=== PATIENT | female | born 1950 | race Caucasian/White ===

== ENCOUNTER 2017-07-23 15:50 | Outpatient (CLI) | payer MEDICARE, BC ==
--- NOTE | 2017-07-23 17:54 | MRI ---
MR OF THE RIGHT SHOULDER WITHOUT CONTRAST 07/23/17 INDICATION: Right shoulder pain. COMPARISON: None. FINDINGS: There is mild tendinosis of the supraspinatus. Small amount of fluid is seen within the subacromial s ubdeltoid bursa. The biceps tendon is located. No paralabral cyst is evident. Glenohumeral joint appe ars within normal limits. There is moderate AC joint osteoarthrosis. No muscular atrophy is evident. There is mild tendinosis of the subscapularis. There is some intrasubstance degenerative signal seen involving the biceps anchor. IMPRESSION: 1. Mild subscapularis and supraspinatus tendinosis. No full thickness rotator cuff tear is evide nt. 2. Small amount of fluid in the subacromial subdeltoid bursa can be related to mild bursitis. 3. Some mild intrasubstance degenerative signal of the biceps anchor. 4. Moderate AC joint osteoarthrosis. POS: [facility]
== END 2017-07-23 15:51 | disposition home or self-care (01) ==
LOC: MRI 15:50
PROVIDERS: ATTEND Orthopaedic Surgery
DX: M25.511 Pain in right shoulder (principal); M75.81 Other shoulder lesions, right shoulder; M19.011 Primary osteoarthritis, right shoulder

== ENCOUNTER 2017-09-09 08:31 | Outpatient (CLI) | payer MEDICARE, BC ==
--- NOTE | 2017-09-09 10:19 | MRI ---
MRI CERVICAL SPINE NONCONTRAST: History: Neck pain. Cervical radiculopathy. FINDINGS: Vertebral body heights are maintained. Bone marrow signal is within normal limits. There is desiccati on of all intervertebral discs. C2-3: Mild osteophytosis. Mild stenosis left neural foramen. C3-4: Mild osteophytosis. Mild stenosis left neural foramen. C4-5: Mild osteophytosis. Central canal and neural foramina are patent. C5-6: Posterior osteophyte/disc complex is greater to the left of midline, effacing the left ventral aspect of the thecal sac and spinal cord by 10%. No abnormal signal within the cord. Uncal vertebral and facet hypertrophy with mild to moderate bilateral foraminal stenosis. C6-7: Disc space narrowing. Posterior osteophyte/disc complex. Circumferential degenerative changes w ith mild central canal stenosis. Tarlov cysts are associated with each nerve root. Degenerative teague es with moderate stenosis left neural foramen. C7-T1: Mild osteophytosis. Central canal and neural foramina are patent. IMPRESSION: 1. Multilevel degenerative changes throughout the cervical spine as detailed above, including central canal and bilateral foraminal stenosis. No evidence of myelomalacia. POS: [facility]
--- NOTE | 2017-09-09 11:18 | MRI ---
LUMBAR SPINE MRI WITHOUT IV CONTRAST: History: 67-year-old female with history of lumbar radiculopathy and low back pain. Technique: Multiplanar, multisequence MRI examination of the lumbar spine is performed. FINDINGS: There are some desiccation changes and degenerative changes throughout the lumbar spine. Conus medull zhen region is unremarkable terminating at L1. L1-2: Unremarkable. L2-3: There is some minimal disc bulging with ligament and facet hypertrophic changes with slight thi nning of the lateral recesses and mild bilateral foraminal stenosis. L3-4: Marked generalized disc bulging with prominent annular fissures noted centrally and posterior l eft lateral aspect with some resultant mild central canal and lateral recess stenosis and moderate le ft foraminal stenosis. L4-5: Mild disc bulging with some associated annular fissures without significant central canal steno sis. There is some focal left foraminal stenosis. L5-S1: Unremarkable. IMPRESSION: Multilevel variable severity canal, lateral recess, and foraminal stenosis. Multilevel annular fissur es. No significant abnormal marrow signal. POS: [facility]
== END 2017-09-09 08:32 | disposition home or self-care (01) ==
LOC: TBSIIMAG 08:31
PROVIDERS: ATTEND Orthopaedic Surgery
DX: M47.22 Other spondylosis with radiculopathy, cervical region (principal); M48.061 Spinal stenosis, lumbar region without neurogenic claudication; M99.81 Other biomechanical lesions of cervical region; M99.83 Other biomechanical lesions of lumbar region; M48.02 Spinal stenosis, cervical region
CPT/HCPCS: 72141; 72148

== ENCOUNTER 2017-12-01 14:13 | Outpatient (CLI) | payer MEDICARE, BC ==
--- NOTE | 2017-12-01 15:46 | RAD ---
THREE VIEWS CERVICAL SPINE: DATE: 12/01/17. HISTORY: Degenerative disk disease. FINDINGS: The neutral lateral examination demonstrates disk space narrowing with anterior osteophyte formation at C6-7. There is disk space narrowing with mild posterior osteophyte formation at C5-6. There is n o anterolisthesis or retrolisthesis seen on the neutral lateral imaging. With flexion and extension, there is no significant anterolisthesis or retrolisthesis noted. No frontal imaging is provided. IMPRESSION: Degenerative disk disease at described above. POS: [facility]
--- NOTE | 2017-12-01 15:50 | RAD ---
LUMBAR SPINE THREE VIEWS: 12/01/2017 HISTORY: A 67-year-old female with intervertebral disk degeneration. COMPARISON: None. FINDINGS: The neutral lateral examination demonstrates L2-L3 retrolisthesis measuring 9 mm and L3-L4 retrolisth esis measuring 7 mm. There is facet hypertrophy at L3-L4, L4-L5, and L5-S1. Retrolisthesis at L2-L3 and at L3-L4 appears unchanged on flexion and extension imaging. At the L1-L2 through the L5-S1 levels, there is mild anterior osteophyte formation. No acute fractur e or dislocation is seen. IMPRESSION: Multilevel degenerative change, as described above. There is retrolisthesis of L2 on L3, stable, wit h neutral flexion and extension views. POS: [facility]
== END 2017-12-01 14:14 | disposition home or self-care (01) ==
LOC: RAD 14:13
PROVIDERS: ATTEND Neurological Surgery
DX: M51.36 Other intervertebral disc degeneration, lumbar region (principal); M47.896 Other spondylosis, lumbar region; M47.897 Other spondylosis, lumbosacral region; M43.16 Spondylolisthesis, lumbar region; M25.78 Osteophyte, vertebrae; M50.30 Other cervical disc degeneration, unspecified cervical region
CPT/HCPCS: 72040; 72100

== ENCOUNTER 2018-05-26 16:03 | Observation (INO) | payer MEDICARE, BC ==
[2018-05-26 16:40] LABS: #Eosinphils 0.1 thou/uL (0.0-0.7); #Lymphocytes 2.8 thou/uL (1.20-3.40); #Monocytes 0.6 thou/uL (0.11-0.59); %Basophils 0.7 % (0.0-1.0); %Lymphocytes 42.2 % (21.0-51.0); %Monocytes 9.6 % (0.0-10.0); %Neutrophils 45.5 % (42.0-75.0); Hemoglobin 13.9 g/dL (12.0-16.0); Mean Corpuscular HGB CONC 33.6 g/dL (32.0-36.0); Mean Corpuscular Hemoglobin 30.1 pg (27.0-31.0); Mean Corpuscular Volume 89.7 fL (78.0-98.0); Mean Platelet Volume 7.6 fL (7.4-10.4); Platelet Count 184 thou/uL (130-400); Red Blood Cell (RBC) Count 4.62 mill/uL (4.20-5.40); White Blood Cell (WBC) Count 6.6 thou/uL (4.8-10.8)
[2018-05-26 17:01] LABS: ALT (SGPT) 25 U/L (8-55); AST (SGOT) 18 U/L (5-34); Albumin 3.7 g/dL (3.4-4.8); Alkaline Phosphatase 62 U/L (40-150); Anion Gap 13 mmol/L (10-20); BUN (Urea Nitrogen) 12 mg/dL (9.8-20.1); Bilirubin, Total 0.4 mg/dL (0.2-1.2); CK (CPK) 70 U/L (29-168); Calc. Creatinine Clearance 0 mL/min (70-130); Calcium 9.4 mg/dL (7.8-10.44); Carbon Dioxide 21 mmol/L (23-31); Chloride 106 mmol/L (98-107); Estimated GFR-MDRD 69; Globulin 2.8 g/dL (2.4-3.5); Glucose 222 mg/dL (80-115); Lipase 40 U/L (8-78); Potassium 4.1 mmol/L (3.5-5.1); Protein, Total 6.5 g/dL (6.0-8.3); Sodium 136 mmol/L (136-145)
--- NOTE | 2018-05-26 17:21 | RAD ---
SINGLE VIEW OF THE CHEST: COMPARISON: None. HISTORY: Intermittent chest pain for weeks. FINDINGS: Single view of the chest shows a normal sized cardiomediastinal silhouette. There is no evidence of c onsolidation, mass, or pleural effusion. The bones are unremarkable. IMPRESSION: No evidence of acute cardiopulmonary disease. POS: [facility]
[2018-05-26] MEDS ORDERED: Nitroglycerin 0.4 MG TAB (25 Tab Bottle) ONE (17:50)
[2018-05-26] MEDS ORDERED: Acetaminophen 500 MG TAB ONE (17:50)
[2018-05-26] MEDS ORDERED: Ketorolac Tromethamine 30 MG/ML VIAL ONE (20:32)
[2018-05-26] MEDS ORDERED: Nitroglycerin 2% Ointment 1 INCH/1 GM Packet ONE (21:51)
[2018-05-26] MEDS ORDERED: HumaLOG 300 UNITS/3 ML VIAL SC PRN (22:33)
[2018-05-26] MEDS ORDERED: Dextrose 50% Abboject 50 ML SYRINGE SLOW IVP PRN (22:33)
[2018-05-26] MEDS ORDERED: Dextrose 5% in Water 1,000 ML IV PRN (22:33)
[2018-05-27 01:52] LABS: Troponin I Less than 0.010 ng/mL (< 0.028)
[2018-05-27 04:32] LABS: #Eosinphils 0.1 thou/uL (0.0-0.7); #Lymphocytes 3.1 thou/uL (1.20-3.40); #Monocytes 0.8 thou/uL (0.11-0.59); #Neutrophils 2.5 thou/uL (1.40-6.50); %Basophils 0.7 % (0.0-1.0); %Eosinophils 1.9 % (0.0-10.0); %Lymphocytes 47.6 % (21.0-51.0); %Neutrophils 37.8 % (42.0-75.0); Hemoglobin 12.8 g/dL (12.0-16.0); Mean Corpuscular Hemoglobin 30.1 pg (27.0-31.0); Mean Corpuscular Volume 88.6 fL (78.0-98.0); Mean Platelet Volume 7.8 fL (7.4-10.4); Platelet Count 166 thou/uL (130-400); RBC Distribution Width 11.8 % (11.5-14.5); Red Blood Cell (RBC) Count 4.24 mill/uL (4.20-5.40); White Blood Cell (WBC) Count 6.5 thou/uL (4.8-10.8)
[2018-05-27 04:51] LABS: ALT (SGPT) 22 U/L (8-55); AST (SGOT) 29 U/L (5-34); Albumin 3.3 g/dL (3.4-4.8); Alkaline Phosphatase 51 U/L (40-150); Anion Gap 12 mmol/L (10-20); BUN (Urea Nitrogen) 14 mg/dL (9.8-20.1); Bilirubin, Total 0.4 mg/dL (0.2-1.2); Calc. Creatinine Clearance 0 mL/min (70-130); Calcium 8.9 mg/dL (7.8-10.44); Carbon Dioxide 23 mmol/L (23-31); Cardiac Risk 4.8 (Less than 4.5); Chloride 107 mmol/L (98-107); Cholesterol 196 mg/dl (< 200 Desired); Estimated GFR-MDRD 79; Globulin 2.9 g/dL (2.4-3.5); Glucose 165 mg/dL (80-115); HDL Cholesterol 41 mg/dL (>60 Neg Risk); LDL Cholesterol, Calculated 89 mg/dL; Potassium 4.5 mmol/L (3.5-5.1); Protein, Total 6.2 g/dL (6.0-8.3); Sodium 137 mmol/L (136-145); Triglycerides 330 mg/dL (Less than 150)
[2018-05-27] MEDS ORDERED: Ondansetron PF 4 MG/2 ML Vial IVP PRN (08:41)
[2018-05-27] MEDS ORDERED: Ondansetron ODT 4 MG TAB PO PRN (08:41)
[2018-05-27] MEDS ORDERED: Acetaminophen 325 MG TAB PO PRN (08:41)
[2018-05-27] MEDS ORDERED: Enoxaparin Sodium 40 MG/0.4 ML SYRINGE SC SCH (09:00)
[2018-05-27] MEDS ORDERED: Famotidine 20 MG TAB PO SCH (09:00)
--- NOTE | 2018-05-27 13:58 | NM ---
MYOCARDIAL PERFUSION SCAN: INDICATIONS: Chest pain. TECHNIQUE: The patient was given 10 millicuries technetium sestamibi for rest imaging and 30 millicuries for str ess imaging. The patient was stressed according to adenosine protocol. FINDINGS: The left ventricle is imaged with SPECT imaging and CT attenuation. There is normal activity throughout the left ventricle on stress and rest images. No evidence for re versible ischemia. Wall motion appears normal. Ejection fraction is recorded at 78%. IMPRESSION: Negative sestamibi stress test. POS: [facility]
--- NOTE | 2018-05-27 14:17 | PDOC.EVN ---
Event Note - Event Note Event Note: patient seen. evaluation and management reviewed. agree with Valdez NEELY
[2018-05-27] MEDS ORDERED: ADENOSINE 60 MG/20 ML VIAL ONE (16:44)
--- NOTE | 2018-05-30 21:26 | EKG ---
Test Reason : DIZZINESS Blood Pressure : / mmHG Vent. Rate : 066 BPM Atrial Rate : 066 BPM P-R Int : 166 ms QRS Dur : 084 ms QT Int : 406 ms P-R-T Axes : 028 -24 -17 degrees QTc Int : 425 ms Normal sinus rhythm Septal infarct , age undetermined Abnormal ECG Confirmed by DAKOTAH CATALAN ([id number]), editor trade journal [employer] MORALES ([id number]) on 05/30/2018 9:25:47 PM Referred By: Confirmed By:DAKOTAH CATALAN
== END 2018-05-27 15:45 | disposition home or self-care (01) ==
LOC: ERS 16:03 → ERHOLD 05-27 02:58
PROVIDERS: ADMIT Internal Medicine; ATTEND Internal Medicine
DX: R07.9 Chest pain, unspecified (principal); R51 Headache; E11.9 Type 2 diabetes mellitus without complications; E78.00 Pure hypercholesterolemia, unspecified; I10 Essential (primary) hypertension; F41.9 Anxiety disorder, unspecified; F32.9 Major depressive disorder, single episode, unspecified; Z79.82 Long term (current) use of aspirin; Z79.84 Long term (current) use of oral hypoglycemic drugs; Z79.899 Other long term (current) drug therapy
CPT/HCPCS: 71045; 78452; 80053; 80061; 82550; 83690; 83880; 84484 ×3; 85025; 93005; 93017; 93306; 96361; 96374; 99285; A9500; G0378; 36415; 84443; J0153; J1885

== ENCOUNTER 2018-10-21 08:25 | Outpatient (CLI) | payer MEDICARE, BC ==
--- NOTE | 2018-11-18 15:35 | MMO ---
Bilateral MAMMO Bilat Screen [facility]. CLINICAL HISTORY: Patient is 68 years old and is seen for screening. The patient has no family history of breast cancer. The patient has no personal history of cancer. VIEWS: The views performed were: bilateral craniocaudal with tomosynthesis; bilateral mediolateral oblique with tomosynthesis; and bilateral exaggerated craniocaudal. MAMMOGRAM FINDINGS: The breasts are almost entirely fat. Finding 1: There are benign appearing calcifications seen in both breasts. Finding 2: There are masses with circumscribed margins seen in both breasts. There are no suspicious masses, suspicious calcifications, or new areas of architectural distortion. IMPRESSION: THERE IS NO MAMMOGRAPHIC EVIDENCE OF MALIGNANCY. A ROUTINE FOLLOW-UP MAMMOGRAM IN 1 YEAR IS RECOMMENDED. THE RESULTS OF THIS EXAM WERE SENT TO THE PATIENT. ACR BI-RADS Category 2 - Benign finding MAMMOGRAPHY NOTE: 1. A negative mammogram report should not delay a biopsy if a dominant of clinically suspicious mass is present. 2. Approximately 10% to 15% of breast cancers are not detected by mammography. 3. Adenosis and dense breasts may obscure an underlying neoplasm.
== END 2018-10-21 08:26 | disposition home or self-care (01) ==
LOC: BICMAMMO 08:25
PROVIDERS: ATTEND Family Medicine
DX: Z12.31 Encounter for screening mammogram for malignant neoplasm of breast (principal)
CPT/HCPCS: 77063; 77067

== ENCOUNTER 2018-12-10 07:26 | Outpatient (CLI) | payer MEDICARE, BC ==
--- NOTE | 2018-12-10 12:24 | MRI ---
MRI LUMBAR SPINE WITH AND WITHOUT CONTRAST: DATE: 12/10/2018. HISTORY: A 68-year-old female with ICD-10: M47.816, spondylosis of lumbar spine. M54.32, sciatica of left si de. R20.0, numbness in left leg. R29.898, weakness of left leg. COMPARISON: Noncontrast MRI of 09/09/2017. TECHNIQUE: Multiple sequences obtained in axial and sagittal planes, pre and post IV injection of gadolinium-bas ed contrast agent. FINDINGS: For the purposes of this report, it will be assumed that there are 5 lumbar-type vertebrae. Vertebra l body heights are maintained. Conus medullaris terminates at upper L1. No major bone marrow signal abnormality. No major spondylolisthesis. No severe disk space narrowing at any level. There is a new finding of an extradural mass occupying the left side of the spinal canal at L2. The superior ex tent of the mass is at the pedicle level of L2, and the inferior margin of the mass is at the L2-[address] level. At L2-3, there is a central and left paracentral disk extrusion (in contact with the mass described above) superimposed on a diffuse disk bulge. The mass described above in the left lateral epidural space is T1 hypointense and is T2 intermediate signal (much higher than that of intervertebr al disk). It does not enhance centrally, but there is thin peripheral enhancement probably represent ing granulation tissue. The mass indents the left side of the thecal sac, and medially displaces the left cauda equina nerve roots. It also impinges on the left L2 nerve root. There is mild to moderate central spinal canal stenosis at L2-3 and at L3-4. Other than the mass and the disk herniation, there is no other interval change. IMPRESSION: Left lateral large extradural mass at L2, impinging on multiple nerve roots. This is probably a supe riorly migrated extruded herniated disk material from L2-3. JN R POS: [facility]
== END 2018-12-10 07:27 | disposition home or self-care (01) ==
LOC: MRI 07:26
PROVIDERS: ATTEND Family Medicine
DX: M47.816 Spondylosis without myelopathy or radiculopathy, lumbar region (principal); M54.32 Sciatica, left side; R20.0 Anesthesia of skin; R29.898 Other symptoms and signs involving the musculoskeletal system
CPT/HCPCS: 72158; 82565

== ENCOUNTER 2018-12-11 12:28 | Inpatient (IN) | payer MEDICARE, BC ==
[2018-12-11 13:52] LABS: #Eosinphils 0.1 thou/uL (0.0-0.7); #Lymphocytes 1.2 thou/uL (1.20-3.40); #Monocytes 0.3 thou/uL (0.11-0.59); #Neutrophils 9.8 thou/uL (1.40-6.50); %Basophils 0.1 % (0.0-1.0); %Eosinophils 0.7 % (0.0-10.0); %Lymphocytes 10.3 % (21.0-51.0); %Monocytes 2.8 % (0.0-10.0); %Neutrophils 86.1 % (42.0-75.0); Hemoglobin 15.8 g/dL (12.0-16.0); Mean Corpuscular HGB CONC 35.3 g/dL (32.0-36.0); Mean Corpuscular Hemoglobin 31.4 pg (27.0-31.0); Mean Platelet Volume 7.4 fL (7.4-10.4); Platelet Count 186 thou/uL (130-400); RBC Distribution Width 12.1 % (11.5-14.5); Red Blood Cell (RBC) Count 5.02 mill/uL (4.20-5.40); White Blood Cell (WBC) Count 11.3 thou/uL (4.8-10.8)
[2018-12-11 13:57] LABS: Prothrombin Time 12.6 SEC (12.0-14.7)
[2018-12-11 13:58] LABS: PTT 28.6 SEC (22.9-36.1)
[2018-12-11 14:15] LABS: ALT (SGPT) 31 U/L (8-55); AST (SGOT) 18 U/L (5-34); Alkaline Phosphatase 76 U/L (40-150); Anion Gap 14 mmol/L (10-20); BUN (Urea Nitrogen) 12 mg/dL (9.8-20.1); Bilirubin, Total 0.5 mg/dL (0.2-1.2); Calc. Creatinine Clearance 0 mL/min (70-130); Calcium 9.6 mg/dL (7.8-10.44); Carbon Dioxide 24 mmol/L (23-31); Chloride 101 mmol/L (98-107); Estimated GFR-MDRD 72; Globulin 3.2 g/dL (2.4-3.5); Glucose 294 mg/dL (80-115); Potassium 4.7 mmol/L (3.5-5.1); Protein, Total 7.2 g/dL (6.0-8.3); Sodium 134 mmol/L (136-145)
[2018-12-11] MEDS ORDERED: Ondansetron ODT 4 MG TAB SL PRN (17:14)
[2018-12-11] MEDS ORDERED: Ondansetron PF 4 MG/2 ML Vial IVP PRN (17:14)
[2018-12-11] MEDS ORDERED: Senokot S 8.6-50 MG TAB PO PRN (17:28)
[2018-12-11] MEDS ORDERED: Acetaminophen 325 MG TAB PO PRN (17:28)
[2018-12-11 18:11] VITALS: BMI 29.5
[2018-12-11] MEDS: tiZANidine HCl 4 MG TAB PO PRN (18:24)
[2018-12-11] MEDS: HYDROcodone/Acetaminophen 5/325 mg Tablet PO PRN (18:25)
[2018-12-11] MEDS: Sodium Chloride 0.9% 1,000 ML IV SCH ×2 (18:35→19:08)
[2018-12-12] MEDS: HYDROcodone/Acetaminophen 5/325 mg Tablet PO PRN ×3 (00:02→22:59)
--- NOTE | 2018-12-12 02:59 | CON ---
DATE OF CONSULTATION: This is Endy Bray PA-C dictating a report for Gerardo Szymanski MD. This is a 50-minute initial patient evaluation of which greater than 50% of the exam was spent counseling and coordinating the patient's care. Remainder of the exam was spent in review of the patient's medical records and formulation of treatment plan as well as review of appropriate imaging studies. CHIEF COMPLAINT: Left leg paresthesias and weakness for the past week. HISTORY OF PRESENT ILLNESS: Ms. Nolasco is a 68-year-old female who presents to [facility] with her for the above complaints. Apparently, the patient has dealt with episodic low back and left lower extremity pain for several months, but earlier this week, she was repotting plants at her daughter's house in [place] when she had a sudden onset of electric-like sensation of pain that was debilitating into the back and left hip, and anterolateral thigh. She states her pain was so severe that the next day she required EMS to take her to [facility] for evaluation and pain control. She states they were able to control her leg pain and some back pain with medications, however, she continues with functional weakness of the left leg and that she feels as though she is not steady on her feet. She is afraid her leg will not support her and she states she feels as though her knee will buckle. She has not had any falls at this time. Again, she has paresthesias in the same distribution as pain with addition of some extension into the left lateral calf. She does have for the past 1 day right hip pain and she believes that this is related to compensation with the left leg as well as left-sided back pain. She is on 81 mg aspirin for cardiac prophylaxis, though does not report taking it recently. She has not had epidural steroid injections in the past given that her pain has episodically and with time improved. She does not use tobacco. Review of the patient's lumbar spine MRI shows a large herniated disk and significant neuroforaminal compromise with facet hypertrophy on the left at L2-L3 at a lesser extent, but still severe at the L3-L4 level. There does not appear to be any significant malalignment of the lumbar spine. PHYSICAL EXAMINATION: GENERAL: The patient is awake, alert, and appropriate. EXTREMITIES: She has full strength in the bilateral upper extremities and in the right lower extremity, however, does have some mild weakness in the left iliopsoas. She also has decreased sensation to light touch in the left anterolateral thigh. NEUROLOGIC: Gait was not tested. She does not appear to have significant tenderness to palpation of the lumbar spine. She is able to somewhat comfortably turn over in bed during the exam. GCS currently is 15. IMPRESSION AND DIAGNOSES: 1. Low back with left lumbar radiculopathy. 2. Left L2-L3 and left L3-L4 foraminal stenosis and herniated disk. 3. Type 2 diabetes mellitus. PLAN: At this time, I have discussed the patient's case and imaging with Dr. Szymanski. We have also discussed surgical intervention given the patient's leg weakness and significant severe foraminal stenosis that include a left L2-L3 and left L3-L4 hemilaminotomies, foraminotomies, and diskectomy at the L2-L3 level. At this time, I do not believe that we need to add any right-sided work; however, Dr. Szymanski and I will again review the MRI together and the patient again notes that her symptoms are significant into the left lower extremity. As such, I have also consulted our hospitalist colleagues to help clear the patient for surgery if she does have elevated blood glucose at 294. The patient may eat until midnight, but likely we will plan for surgery on Friday morning. She will likely need inpatient rehab versus home health physical therapy after surgery. Nonetheless, we will closely monitor the patient and I have allowed her to have activity as tolerated since she is a fall risk. Please call with any changes in the patient's neurologic status, otherwise we will finalize her surgical plan tomorrow. Job ID: [id number]
[2018-12-12] MEDS: Sodium Chloride 0.9% 1,000 ML IV SCH ×2 (05:58→12:58)
[2018-12-12] MEDS ORDERED: metFORMIN 500 MG TAB PO SCH (08:00)
[2018-12-12 08:06] LABS: #Basophils 0.1 thou/uL (0.0-0.2); #Eosinphils 0.1 thou/uL (0.0-0.7); #Lymphocytes 2.7 thou/uL (1.20-3.40); #Monocytes 1.2 thou/uL (0.11-0.59); #Neutrophils 7.8 thou/uL (1.40-6.50); %Basophils 0.5 % (0.0-1.0); %Eosinophils 0.7 % (0.0-10.0); %Lymphocytes 22.9 % (21.0-51.0); %Neutrophils 65.9 % (42.0-75.0); Hemoglobin 13.6 g/dL (12.0-16.0); Mean Corpuscular HGB CONC 33.5 g/dL (32.0-36.0); Mean Corpuscular Hemoglobin 29.7 pg (27.0-31.0); Mean Corpuscular Volume 88.6 fL (78.0-98.0); Mean Platelet Volume 7.3 fL (7.4-10.4); Platelet Count 180 thou/uL (130-400); RBC Distribution Width 12.1 % (11.5-14.5); Red Blood Cell (RBC) Count 4.58 mill/uL (4.20-5.40); White Blood Cell (WBC) Count 11.8 thou/uL (4.8-10.8)
[2018-12-12 08:25] LABS: Anion Gap 11 mmol/L (10-20); BUN (Urea Nitrogen) 13 mg/dL (9.8-20.1); Calc. Creatinine Clearance 102 mL/min (70-130); Calcium 9.6 mg/dL (7.8-10.44); Carbon Dioxide 28 mmol/L (23-31); Chloride 103 mmol/L (98-107); Estimated GFR-MDRD 85; Glucose 176 mg/dL (80-115); Potassium 3.8 mmol/L (3.5-5.1); Sodium 138 mmol/L (136-145)
[2018-12-12] MEDS ORDERED: Dextrose 5% in Water 1,000 ML IV PRN (09:57)
[2018-12-12] MEDS ORDERED: Dextrose 50% Abboject 50 ML SYRINGE SLOW IVP PRN (09:57)
[2018-12-12] MEDS: tiZANidine HCl 4 MG TAB PO PRN ×2 (09:58→23:00)
[2018-12-12] MEDS: Alogliptin 25 MG TAB PO SCH (09:59)
[2018-12-12] MEDS: Atorvastatin Calcium 10 MG TAB PO SCH (10:00)
--- NOTE | 2018-12-12 10:29 | CON ---
DATE OF CONSULTATION: 12/12/2018 REQUESTING PHYSICIAN: FLORINDA Bianchi to Dr. Szymanski. REASON FOR CONSULTATION: Preoperative evaluation and clearance. CHIEF COMPLAINT: Worsening low back pain. HISTORY OF PRESENT ILLNESS: A 68-year-old female with past medical history significant for diabetes, hypertension, hyperlipidemia, as well as chronic back pain, who was admitted by Neurosurgery Service due to worsening back pain. Evaluation showed severe lumbar spondylosis with stenosis and surgery is planned. Hospitalist Service was requested for preoperative evaluation and clearance. The patient reported that the back pain has improved significantly following steroid therapy. Currently, she rates her pain at 3 to 4/10. Denied chest pain, palpitation, vomiting, abdominal pain, dysuria, hematuria, leg swelling, focal weakness, PND, orthopnea, shortness of breath, exertional dyspnea, or claudication. She admitted to mild headache, left leg weakness, and left thigh numbness. There is no history of fever, cough, or change in appetite or weight. The patient had a negative nuclear stress test in May 2018, and has not had any chest pain since then. PAST MEDICAL HISTORY: 1. Hypertension. 2. Diabetes. 3. Hyperlipidemia. PAST SURGICAL HISTORY: 1. Cholecystectomy. 2. Hysterectomy. 3. Carpal tunnel release. 4. Pilonidal cyst resection. FAMILY HISTORY: Significant for coronary artery disease and esophageal cancer as well as hypertension and diabetes in father who is late now. Mother who is also late had hypertension and diabetes. SOCIAL HISTORY: The patient lives with spouse. Denied tobacco or recreational drug use. She wants to be full code. Spouse is the surrogate decision maker. ALLERGIES: NO KNOWN DRUG ALLERGY REPORTED. HOME MEDICATIONS: 1. Wellbutrin 150 mg p.o. b.i.d. 2. Citalopram 20 mg p.o. daily. 3. Metformin ER 2000 mg p.o. daily at bedtime. 4. Naprosyn 500 mg p.o. daily p.r.n. 5. Enalapril 20 mg p.o. daily. 6. Januvia 100 mg p.o. daily. REVIEW OF SYSTEMS: Twelve-point review of systems performed was negative other than pertinent positives and negatives included in the history of present illness. PHYSICAL EXAMINATION: VITAL SIGNS: Temperature 97.8, pulse 67, respiratory rate 16, SpO2 of 96% on room air, blood pressure 144/77. GENERAL: Healthy-looking, middle-aged female, in no distress. Afebrile. Anicteric. Acyanotic. HEENT: Normocephalic, atraumatic. Pupils are reacting to light. NECK: Supple with mild posterior tenderness. Range of motion is preserved. No lymphadenopathy or masses appreciated. CARDIOVASCULAR: Regular rhythm and rate. Normal heart sounds 1 and 2. No murmur was appreciated. RESPIRATORY: Good air entry bilaterally with no crackle, rhonchi, or use of accessory muscles. GI: Full, soft, nontender, nondistended with normal bowel sounds. EXTREMITIES: Grossly normal looking, atraumatic, with no edema or erythema. Distal pulses are palpable. NEUROLOGIC: Conscious, alert, and oriented x3 with appropriate mental status. Cranial nerves 2 through 12 are intact. The patient moves all extremities. Power is minimally decreased on the left lower extremity with a score of 5-/5 while other limbs are 5/5. Mild atrophy of the thigh muscles, especially on the lateral side were also noted. Sensation also is decreased on the lateral left thigh. PSYCHIATRIC: Normal affect with behavior as well as good insight. DIAGNOSTIC DATA: CBC showed WBC count of 11.8, hemoglobin of 13.6, MCV of 88.6, platelet of 180. Coagulation panel showed PT 12.6, INR 1.0, PTT 28.6. BMP showed sodium 138, potassium 3.8, chloride 103, CO2 of 28, BUN 13, creatinine 0.69, glucose 176, calcium 9.6. ASSESSMENT: 1. Lumbar spondylosis with herniated disk and spinal stenosis as well as foraminal stenosis. Surgery is planned by Neurosurgery. 2. Type 2 diabetes mellitus. 3. Hypertension. 4. Hyperlipidemia. 5. Depression. 6. Pilonidal cyst status post resection with intermittent flare ups. 7. Chronic back pain. 8. Negative stress test in May 2018. The patient has chronic medical conditions, hypertension, depression, type 2 diabetes, which are all well controlled. She denied chest pain, palpitation, PND, or orthopnea. She also had negative stress test in May. She had some mildly increased cardiovascular risk, but that could not be further modified. We will go ahead and rule out acute myocardial infarction with troponin, and the patient would be cleared for surgery if that is indicated. PLAN: 1. We will hold metformin at this time given planned surgery with possible volume status changes. 2. We will continue other medications. We will also start the patient on sliding scale insulin given mild hyperglycemia related to steroid therapy. 3. Analgesic as per Neurosurgery. 4. DVT prophylaxis with SCDs for now. 5. Code status full code. The patient's spouse is the surrogate decision maker. Job ID: [id number]
[2018-12-12 10:34] LABS: Troponin I Less than 0.010 ng/mL (< 0.028)
[2018-12-12] MEDS: Citalopram 20 MG TAB PO SCH (10:44)
[2018-12-12] MEDS: Bupropion 150 MG SR TAB PO SCH ×2 (10:44→20:50)
[2018-12-12] MEDS: HumaLOG 300 UNITS/3 ML VIAL SC PRN ×3 (11:36→22:14)
[2018-12-12] MEDS ORDERED: Lorazepam 1 MG TAB PO SCH (22:00)
[2018-12-13] MEDS ORDERED: Fentanyl 100 MCG/2 ML VIAL ONE (07:22)
[2018-12-13 07:29] LABS: Hemoglobin A1c 8.3 % (4.0-6.0)
[2018-12-13] MEDS ORDERED: Sodium Chloride 0.9% 10 ML ONE (07:45)
[2018-12-13] MEDS ORDERED: Thrombin 5000 UNITS/5 ML VIAL ONE (07:45)
[2018-12-13] MEDS ORDERED: Midazolam HCl 2 mg/2 ml Vial ONE (08:02)
[2018-12-13] MEDS ORDERED: ceFAZolin Sodium (SDC) 2 GM/100 ML BAG ONE (08:11)
[2018-12-13] MEDS ORDERED: Bacitracin Zinc Ointment 30 gm TUBE ONE (09:59)
[2018-12-13] MEDS ORDERED: HYDROmorphone 2 MG/ML VIAL ONE (11:08)
[2018-12-13] MEDS ORDERED: Promethazine HCl 25 MG/ML VIAL IM PRN (11:19)
[2018-12-13] MEDS ORDERED: PACU-Morphine 4MG/ML VIAL SLOW IVP PRN (11:19)
[2018-12-13] MEDS ORDERED: Ondansetron HCl/PF 4 MG/2 ML Vial IVP PRN (11:19)
[2018-12-13] MEDS ORDERED: HYDROmorphone 2 MG/ML VIAL SLOW IVP PRN (11:19)
[2018-12-13] MEDS ORDERED: Promethazine HCl 25 MG/ML VIAL SLOW IVP PRN (11:19)
[2018-12-13] MEDS: Atorvastatin Calcium 10 MG TAB PO SCH (11:35)
[2018-12-13] MEDS: Citalopram 20 MG TAB PO SCH (11:36)
[2018-12-13] MEDS: Bupropion 150 MG SR TAB PO SCH ×2 (11:36→20:47)
[2018-12-13] MEDS: Alogliptin 25 MG TAB PO SCH (11:36)
[2018-12-13] MEDS: Sodium Chloride 0.9% 1,000 ML IV SCH ×2 (12:28→16:12)
[2018-12-13] MEDS: HumaLOG 300 UNITS/3 ML VIAL SC PRN (12:31)
[2018-12-13] MEDS: HYDROcodone/Acetaminophen 5/325 mg Tablet PO PRN ×3 (12:35→22:21)
[2018-12-13] MEDS ORDERED: Ketorolac Tromethamine 30 MG/ML VIAL ONE (12:50)
[2018-12-13] MEDS ORDERED: PHENYLEPHRINE-NS 100 MCG/ML 10 ML SYRINGE ONE (12:50)
[2018-12-13] MEDS ORDERED: Lidocaine 1% PF 5 ML VIAL ONE (12:50)
[2018-12-13] MEDS ORDERED: Rocuronium Bromide 10 MG/ML (10ML VIAL) ONE (12:50)
[2018-12-13] MEDS ORDERED: Ondansetron PF 4 MG/2 ML Vial ONE (12:50)
[2018-12-13] MEDS ORDERED: PROPOFOL 200 MG/20 ML VIAL ONE (12:50)
[2018-12-13] MEDS ORDERED: ePHEDrine 50 MG/ML VIAL ONE (12:50)
[2018-12-13] MEDS ORDERED: Glycopyrrolate 0.2 MG/ML 5 ML SYRINGE ONE (12:50)
[2018-12-13] MEDS: traMADol HCl 50 MG TAB PO PRN ×2 (14:05→20:47)
--- NOTE | 2018-12-13 14:05 | PDOC.HOSPP ---
- Subjective Subjective: S/p back surgery. pain is controlled. Already ambulating. Denied chest pain or SOB. - Objective Vital Signs & Weight: Vital Signs (12 hours) Temp Pulse Resp BP Pulse Ox 12/13/18 03:52 97.8 F 60 16 156/79 H 97 Weight Weight 177 lb 7 oz I&O: 12/12/18 12/13/18 12/14/18 06:59 06:59 06:59 Intake Total 1080 2520 Balance 1080 2520 Result Diagrams: 12/12/18 07:26 12/12/18 07:26 Additional Labs: Accuchecks 12/13/18 12/13/18 12/12/18 12:02 05:59 21:24 POC Glucose 254 H 175 H 213 H 12/12/18 15:48 POC Glucose 260 H ROS - Review of Systems All systems: All other ROS were reviewed and found negative. - Medication Medications: Active Medications Generic Name Dose Route Start Last Admin Trade Name Freq PRN Reason Stop Dose Admin Hydrocodone Bitart/Acetaminophen 1 tab 12/11/18 17:28 12/13/18 12:35 [place] 5/325 PO 1 tab Q4H PRN Administration Moderate Pain (4-6) Alogliptin Benzoate 25 mg 12/12/18 09:00 12/13/18 11:36 Alogliptin PO Not Given DAILY [facility] Atorvastatin Calcium 10 mg 12/12/18 09:00 12/13/18 11:35 Lipitor PO Not Given DAILY [facility] Bupropion HCl 150 mg 12/12/18 21:00 12/13/18 11:36 Wellbutrin Sr PO Not Given BID [facility] Citalopram Hydrobromide 20 mg 12/12/18 09:00 12/13/18 11:36 Celexa PO Not Given DAILY [facility] Enalapril Maleate 20 mg 12/12/18 09:00 12/13/18 11:36 Vasotec PO Not Given DAILY [facility] Sodium Chloride 1,000 mls @ 50 mls/hr 12/11/18 17:30 12/13/18 12:28 Normal Saline 0.9% IV Not Given .Q20H [facility] Insulin Human Lispro 0 units 12/12/18 09:57 12/13/18 12:31 Humalog SC 4 unit .MILD SLIDING SCALE PRN Administration Mild Correctional Scale Tizanidine HCl 4 mg 12/11/18 17:37 12/12/18 23:00 Zanaflex PO 4 mg TID PRN Administration Muscle Spasm - Exam awake alert Eye: PERRL ENT: normocephalic atraumatic Neck: supple Heart: RRR Respiratory: no wheezes, no rales (fair air ebntry bilaterally), no ronchi Gastrointestinal: soft, non-tender, non-distended, normal bowel sounds Extremities: no cyanosis, no edema Neurological: CN's grossly intact (moving all limbs) Psychiatric: A&O x 3 Hosp A/P (1) HTN (hypertension) Code(s): I10 - ESSENTIAL (PRIMARY) HYPERTENSION Status: Acute (2) Back pain Code(s): M54.9 - DORSALGIA, UNSPECIFIED Status: Acute (3) Lumbar spondylosis Code(s): M47.816 - SPONDYLOSIS W/O MYELOPATHY OR RADICULOPATHY, LUMBAR REGION Status: Acute (4) Diabetes mellitus Code(s): E11.9 - TYPE 2 DIABETES MELLITUS WITHOUT COMPLICATIONS Status: Acute - Plan Continue current medications check CBC and BMP in the am. pain management as per Neurosurgery
[2018-12-13] MEDS: tiZANidine HCl 4 MG TAB PO PRN ×2 (14:59→23:20)
[2018-12-13] MEDS: CEFAZOLIN 2 GM, IV Admixture Fee-Chemo 1 UNITS in Sodium Chloride 0.9% 100 ML IVPB SCH ×2 (16:11→23:16)
[2018-12-13] MEDS ORDERED: Cepastat Lozenges 1 LOZ PO PRN (21:27)
[2018-12-13] MEDS ORDERED: HumaLOG 300 UNITS/3 ML VIAL SC PRN (21:28)
[2018-12-14] MEDS: HYDROcodone/Acetaminophen 5/325 mg Tablet PO PRN ×5 (02:25→22:58)
[2018-12-14] MEDS: Sodium Chloride 0.9% 1,000 ML IV SCH (06:03)
[2018-12-14] MEDS: HumaLOG 300 UNITS/3 ML VIAL SC PRN ×4 (06:07→20:56)
[2018-12-14] MEDS: traMADol HCl 50 MG TAB PO PRN ×2 (06:07→15:05)
[2018-12-14 06:16] LABS: #Eosinphils 0.1 thou/uL (0.0-0.7); #Lymphocytes 1.5 thou/uL (1.20-3.40); #Monocytes 1.5 thou/uL (0.11-0.59); #Neutrophils 7.6 thou/uL (1.40-6.50); %Basophils 0.4 % (0.0-1.0); %Eosinophils 0.6 % (0.0-10.0); %Lymphocytes 14.1 % (21.0-51.0); %Monocytes 13.8 % (0.0-10.0); Hemoglobin 12.3 g/dL (12.0-16.0); Mean Corpuscular HGB CONC 33.2 g/dL (32.0-36.0); Mean Corpuscular Hemoglobin 30.6 pg (27.0-31.0); Mean Corpuscular Volume 92.4 fL (78.0-98.0); Mean Platelet Volume 7.1 fL (7.4-10.4); Platelet Count 140 thou/uL (130-400); RBC Distribution Width 12.1 % (11.5-14.5); Red Blood Cell (RBC) Count 4.02 mill/uL (4.20-5.40); White Blood Cell (WBC) Count 10.8 thou/uL (4.8-10.8)
[2018-12-14 06:41] LABS: Anion Gap 10 mmol/L (10-20); BUN (Urea Nitrogen) 8 mg/dL (9.8-20.1); Calc. Creatinine Clearance 99 mL/min (70-130); Calcium 8.5 mg/dL (7.8-10.44); Carbon Dioxide 23 mmol/L (23-31); Chloride 103 mmol/L (98-107); Estimated GFR-MDRD 82; Glucose 224 mg/dL (80-115); Potassium 4.1 mmol/L (3.5-5.1); Sodium 132 mmol/L (136-145)
[2018-12-14] MEDS: Citalopram 20 MG TAB PO SCH (09:21)
[2018-12-14] MEDS: Alogliptin 25 MG TAB PO SCH (09:21)
[2018-12-14] MEDS: tiZANidine HCl 4 MG TAB PO PRN ×2 (09:21→18:25)
[2018-12-14] MEDS: Bupropion 150 MG SR TAB PO SCH ×2 (09:22→20:16)
[2018-12-14] MEDS: Atorvastatin Calcium 10 MG TAB PO SCH (09:22)
--- NOTE | 2018-12-14 09:46 | PRG ---
DATE OF SERVICE: 12/14/2018 Ms. Nolasco is postop day 1 from left L2-L3 and left L3-L4 diskectomy and decompression. She states her left leg feels unchanged; however, we removed a large fragment that had herniated, so she just needs time. She has already been mobilizing. She has good strength in her lower extremities and we will plan to try and control her incisional pain today. Job ID: [id number]
--- NOTE | 2018-12-14 12:42 | OP ---
DATE OF PROCEDURE: 12/13/2018 LOCATION: OR 11. PC MAINTENANCE TECHNICIAN: Asa. PREPROCEDURE DIAGNOSES: Low back and left leg pain and left L3 and L4 weakness with large disk extrusion at left L2-L3 with stenosis at left L3-L4, acute worsening. POSTPROCEDURE DIAGNOSES: Low back and left leg pain and left L3 and L4 weakness with large disk extrusion at left L2-L3 with stenosis at left L3-L4, acute worsening. PROCEDURES PERFORMED: 1. Left L2-L3 hemilaminotomy, foraminotomy, and diskectomy. 2. Left L3-L4 hemilaminotomy and foraminotomy. 3. Use of operative microscope for microdissection. DESCRIPTION OF PROCEDURE: After informed consent was obtained from the patient , the patient was brought to the OR. Proper patient, pause, and identification were carried out. She was placed under excellent endotracheal anesthesia and positioned prone on the OR table. All appropriate points were padded. We identified the L2, L3, L4 dorsal spines. A linear maxi was made over this region. This area was sterilely cleansed, prepared, and draped. Proper patient, pause, and identification were carried out. The wound was then opened with a combination of sharp, monopolar, and blunt dissection. The left L2, left L3, left L4 segments were exposed. Localization film confirmed our area of interest and performed a left L2-L3 hemilaminotomy, foraminotomy, and left L3-L4 hemilaminotomy, foraminotomy, and microscope was brought in for microdissection. Immediately encountered cephalad disk extruded material at the left L2-L3 segment with significant compression of the left L3 nerve root, working anterior to the root, removed a large disk fragment that came out in one piece. I ensured of no more free fragments in apparent space. The wound was copiously irrigated. Hemostasis was maximized. The wound was then closed in anatomic layers following sprinkling of vancomycin powder. The patient was then emerged from anesthesia. Job ID: [id number] [facility]
--- NOTE | 2018-12-14 15:38 | PRG ---
DATE OF SERVICE: 12/12/2018 This is a 50-minute initial hospital visit note, in which 50 minutes were spent reviewing the imaging record, evaluation, examination of the patient, formulation of plan. Greater than 50% of time was spent in counseling on Hiral Nolasco. HISTORY OF PRESENT ILLNESS: Ms. Nolasco is a 68-year-old woman, who was contacted by Dr. Castelan yesterday for the acute onset of worsening low back and left lower extremity pain in the L3 and L4 distributions and also increased buckling of the knee and quadriceps weakness over the course of last few days. MRI revealed a large left L2-L3 disk extrusion with cephalad migration and compression of the traversing left L3 and left L4 nerve roots, but also the left L3-L4 segment with compression traversing left L4 nerve root. Given the motor deficit and intractable pain and as the patient had already been to the ER in [place], I recommended preservation to our ER for evaluation and likely surgical decision making accordingly. The patient has been admitted and feels somewhat improved. She is a bit more comfortable, but continues to have lumbar radiculopathy and sensory modality into the left lower extremity. PHYSICAL EXAMINATION: On exam, she is alert and appropriate. She does have full strength in her myotomes bilaterally. She endorses loss of light touch sensation in left L3 dermatome. IMPRESSION AND PLAN: I discussed with the patient and her extensively and she has seen my colleague, Dr. Robin in the past, and I have let them know that her MRI does demonstrate a large disk extrusion. At this time, there is certainly compressive neurological symptoms. As such, I have recommended left L2-L3 hemilaminotomy, foraminotomy, and diskectomy; and left L3 -L4 hemilaminotomy and foraminotomy. They would like to pursue surgery. We will get medical clearance today. Goals, indications, risks, alternatives, and complications were discussed in detail with the patient and her , and they understand and wished to proceed. There were no barriers to our discussion. DIAGNOSES: Low back and left lower extremity pain with left lumbar radiculopathy resulting from lumbar disk extrusion and lumbar stenosis. Job ID: [id number] MTDD
[2018-12-14] MEDS: metFORMIN XR 500 MG TAB PO SCH (17:24)
--- NOTE | 2018-12-14 17:52 | PDOC.HOSPP ---
- Subjective Subjective: Patient seen and examined for med mngt. Pain controlled. No CP/fever/dysuria/ SOB. No new complaints. No overnight events - Objective Vital Signs & Weight: Vital Signs (12 hours) Temp Pulse Resp BP Pulse Ox 12/14/18 16:25 98.2 F 78 14 147/62 H 97 12/14/18 11:21 98.8 F 68 16 134/59 L 92 L 12/14/18 07:24 99.1 F 70 14 133/76 93 L Weight Weight 177 lb 7 oz I&O: 12/13/18 12/14/18 12/15/18 06:59 06:59 06:59 Intake Total 2520 3250 Balance 2520 3250 Result Diagrams: 12/14/18 06:07 12/14/18 06:07 Additional Labs: Accuchecks 12/14/18 12/14/18 12/14/18 16:30 11:28 05:10 POC Glucose 206 H 261 H 243 H 12/13/18 12/13/18 21:05 15:23 POC Glucose 264 H 205 H ROS - Review of Systems All systems: All other ROS were reviewed and found negative. Constitutional: denies: fever, chills, sweats, weakness, malaise, other Respiratory: denies: cough, dry, shortness of breath, hemoptysis, SOB with excertion, pleuritic pain, sputum, wheezing, other Cardiovascular: denies: chest pain, palpitations, orthopnea, paroxysmal noc. dyspnea, edema, light headedness, other - Medication Medications: Active Medications Generic Name Dose Route Start Last Admin Trade Name Freq PRN Reason Stop Dose Admin Hydrocodone Bitart/Acetaminophen 1 tab 12/11/18 17:28 12/14/18 12:15 [place] 5/325 PO 1 tab Q4H PRN Administration Moderate Pain (4-6) Alogliptin Benzoate 25 mg 12/12/18 09:00 12/14/18 09:21 Alogliptin PO 25 mg DAILY FRANCESCA Administration Atorvastatin Calcium 10 mg 12/12/18 09:00 12/14/18 09:22 Lipitor PO 10 mg DAILY FRANCESCA Administration Bupropion HCl 150 mg 12/12/18 21:00 12/14/18 09:22 Wellbutrin Sr PO 150 mg BID FRANCSECA Administration Citalopram Hydrobromide 20 mg 12/12/18 09:00 12/14/18 09:21 Celexa PO 20 mg DAILY FRANCESCA Administration Enalapril Maleate 20 mg 12/12/18 09:00 12/14/18 09:20 Vasotec PO 20 mg DAILY FRANCESCA Administration Sodium Chloride 1,000 mls @ 50 mls/hr 12/11/18 17:30 12/14/18 06:03 Normal Saline 0.9% IV Not Given .Q20H FRANCESCA Insulin Human Lispro 0 units 12/13/18 21:28 12/13/18 21:37 Humalog SC 3 unit .BEDTIME SLIDING SC PRN Administration Bedtime Correctional Scale Insulin Human Lispro 0 units 12/14/18 12:33 12/14/18 17:25 Humalog SC 4 unit .MODERATE SLIDING SC PRN Administration Moderate Correctional Scale Metformin HCl 2,000 mg 12/14/18 17:00 12/14/18 17:24 Glucophage Xr PO 2,000 mg QPM-WM FRANCESCA Administration Ondansetron HCl 4 mg 12/11/18 17:14 12/14/18 08:41 Zofran Odt SL 4 mg Q6H PRN Administration Nausea/Vomiting Tizanidine HCl 4 mg 12/11/18 17:37 12/14/18 09:21 Zanaflex PO 4 mg TID PRN Administration Muscle Spasm Tramadol HCl 50 mg 12/11/18 17:37 12/14/18 15:05 Ultram PO 50 mg Q6H PRN Administration Mild Pain (1-3) - Exam NAD Heart: RRR, no rubs Respiratory: CTAB, no rales Gastrointestinal: soft, non-tender, normal bowel sounds Extremities: no edema Skin: no rashes Psychiatric: normal affect, A&O x 3 Hosp A/P (1) HTN (hypertension) Code(s): I10 - ESSENTIAL (PRIMARY) HYPERTENSION Status: Chronic (2) DM2 (diabetes mellitus, type 2) Status: Chronic Qualifiers: Chronic kidney disease stage: stage 2 (mild) (3) Anxiety Code(s): F41.9 - ANXIETY DISORDER, UNSPECIFIED Status: Chronic (4) HLD (hyperlipidemia) Code(s): E78.5 - HYPERLIPIDEMIA, UNSPECIFIED Status: Chronic - Plan plan discussed w/ family, DVT proph w/SCDs Cont Statins Cont Vasotec Resume Metformin Cont other meds as below Cont sliding scale
[2018-12-14] MEDS ORDERED: diphenhydrAMINE 50 MG CAP PO PRN (19:58)
[2018-12-15] MEDS: Sodium Chloride 0.9% 1,000 ML IV SCH (02:00)
[2018-12-15] MEDS: HumaLOG 300 UNITS/3 ML VIAL SC PRN ×3 (06:41→17:53)
[2018-12-15] MEDS: HYDROcodone/Acetaminophen 5/325 mg Tablet PO PRN ×2 (07:12→20:20)
[2018-12-15] MEDS: Alogliptin 25 MG TAB PO SCH (08:24)
[2018-12-15] MEDS: Atorvastatin Calcium 10 MG TAB PO SCH (08:24)
[2018-12-15] MEDS: Bupropion 150 MG SR TAB PO SCH ×2 (08:24→20:20)
[2018-12-15] MEDS: Citalopram 20 MG TAB PO SCH (08:25)
[2018-12-15] MEDS: tiZANidine HCl 4 MG TAB PO PRN (11:19)
[2018-12-15] MEDS: traMADol HCl 50 MG TAB PO PRN (11:19)
--- NOTE | 2018-12-15 13:08 | PRG ---
DATE OF SERVICE: 12/15/2018 This is Endy Bray PA-C dictating a report for Gerardo Szymanski MD. Ms. Nolasco is postoperative day #2 having undergone a left hemilaminotomy and foraminotomies with diskectomy. She states she continues to have significant left hip and buttock pain as well as incisional back pain. She states this is as bad as what it was before surgery. However, she is moving the leg with much more vigor today. She has been up walking the halls with a walker. She does state her incisional back pain is worse than her leg pain. She remains with good strength in the bilateral lower extremities with intact sensation to light touch throughout. I have begun the patient on some IV Tylenol, but likely have let her know that her pain is likely related to radiculitis and she needs continued time to heal. Unfortunately, given her diabetes, we are unable to use a Medrol Dosepak. We will continue to monitor her symptoms, but I think with time, her radiculitis will improve. We have also placed a consult and inpatient rehab. Job ID: [id number]
[2018-12-15] MEDS: metFORMIN XR 500 MG TAB PO SCH (16:21)
--- NOTE | 2018-12-15 21:34 | PDOC.HOSPP ---
- Subjective Subjective: Patient seen and examined for med mngt. No new complaints. No overnight events - Objective Vital Signs & Weight: Vital Signs (12 hours) Temp Pulse Resp BP Pulse Ox 12/15/18 20:18 98.9 F 68 18 143/80 H 95 12/15/18 16:00 97.5 F L 60 14 97/61 93 L 12/15/18 12:00 98 F 65 16 123/64 94 L Weight Weight 177 lb 7 oz I&O: 12/14/18 12/15/18 12/16/18 06:59 06:59 06:59 Intake Total 3250 2160 900 Balance 3250 2160 900 Result Diagrams: 12/14/18 06:07 12/14/18 06:07 Additional Labs: Accuchecks 12/15/18 05:33 POC Glucose 175 H ROS - Review of Systems All systems: All other ROS were reviewed and found negative. Respiratory: denies: cough, dry, shortness of breath, hemoptysis, SOB with excertion, pleuritic pain, sputum, wheezing, other Cardiovascular: denies: chest pain, palpitations, orthopnea, paroxysmal noc. dyspnea, edema, light headedness, other - Medication Medications: Active Medications Generic Name Dose Route Start Last Admin Trade Name Freq PRN Reason Stop Dose Admin Hydrocodone Bitart/Acetaminophen 1 tab 12/11/18 17:28 12/14/18 18:25 [place] 5/325 PO 1 tab Q4H PRN Administration Moderate Pain (4-6) Hydrocodone Bitart/Acetaminophen 2 tab 12/14/18 19:58 12/15/18 20:20 [place] 5/325 PO 2 tab Q4H PRN Administration Severe Pain (7-10) Alogliptin Benzoate 25 mg 12/12/18 09:00 12/15/18 08:24 Alogliptin PO 25 mg DAILY FRANCESCA Administration Atorvastatin Calcium 10 mg 12/12/18 09:00 12/15/18 08:24 Lipitor PO 10 mg DAILY FRANCESCA Administration Bupropion HCl 150 mg 12/12/18 21:00 12/15/18 20:20 Wellbutrin Sr PO 150 mg BID FRANCESCA Administration Citalopram Hydrobromide 20 mg 12/12/18 09:00 12/15/18 08:25 Celexa PO 20 mg DAILY FRANCESCA Administration Diphenhydramine HCl 50 mg 12/14/18 19:58 12/14/18 22:58 Benadryl PO 50 mg HSPRN PRN Administration Insomnia Enalapril Maleate 20 mg 12/12/18 09:00 12/15/18 08:24 Vasotec PO 20 mg DAILY FRANCESCA Administration Insulin Human Lispro 0 units 12/13/18 21:28 12/13/18 21:37 Humalog SC 3 unit .BEDTIME SLIDING SC PRN Administration Bedtime Correctional Scale Insulin Human Lispro 0 units 12/14/18 12:33 12/15/18 17:53 Humalog SC 4 unit .MODERATE SLIDING SC PRN Administration Moderate Correctional Scale Metformin HCl 2,000 mg 12/14/18 17:00 12/15/18 16:21 Glucophage Xr PO 2,000 mg QPM-WM FRANCESCA Administration Ondansetron HCl 4 mg 12/11/18 17:14 12/14/18 08:41 Zofran Odt SL 4 mg Q6H PRN Administration Nausea/Vomiting Tizanidine HCl 4 mg 12/11/18 17:37 12/15/18 11:19 Zanaflex PO 4 mg TID PRN Administration Muscle Spasm Tramadol HCl 50 mg 12/11/18 17:37 12/15/18 11:19 Ultram PO 50 mg Q6H PRN Administration Mild Pain (1-3) - Exam NAD Heart: RRR, no rubs Respiratory: CTAB, no rales Gastrointestinal: soft, non-tender, normal bowel sounds Extremities: no edema Hosp A/P (1) HTN (hypertension) Code(s): I10 - ESSENTIAL (PRIMARY) HYPERTENSION Status: Chronic (2) DM2 (diabetes mellitus, type 2) Status: Chronic Qualifiers: Chronic kidney disease stage: stage 2 (mild) (3) Anxiety Code(s): F41.9 - ANXIETY DISORDER, UNSPECIFIED Status: Chronic (4) HLD (hyperlipidemia) Code(s): E78.5 - HYPERLIPIDEMIA, UNSPECIFIED Status: Chronic - Plan Cont Statins/Vasotec Cont Metformin with sliding scale Cont other meds as below Will follow PRN
[2018-12-16] MEDS: HYDROcodone/Acetaminophen 5/325 mg Tablet PO PRN (01:40)
[2018-12-16] MEDS: HumaLOG 300 UNITS/3 ML VIAL SC PRN ×3 (06:09→16:10)
[2018-12-16] MEDS: tiZANidine HCl 4 MG TAB PO PRN ×2 (06:11→19:08)
[2018-12-16] MEDS: Citalopram 20 MG TAB PO SCH (08:23)
[2018-12-16] MEDS: Atorvastatin Calcium 10 MG TAB PO SCH (08:23)
[2018-12-16] MEDS: Alogliptin 25 MG TAB PO SCH (08:23)
[2018-12-16] MEDS: Bupropion 150 MG SR TAB PO SCH (08:23)
--- NOTE | 2018-12-16 08:54 | PRG ---
DATE OF SERVICE: 12/16/2018 DICTATED FOR: Gerardo Szymanski MD This is postoperative note. Ms. Nolasco is a postoperative day #3, having undergone left-sided hemilaminotomies, foraminotomies, and diskectomy. The patient complains today of significant left hip and some slight anterior thigh pain. She states this is about the same or slightly worse than what it was before surgery. She, however, has been ambulating, though she felt some slight give-way weakness into the left hip. She is rather drowsy, however. So, we need to limit the amount of narcotics she gets. She has also had some low blood pressure. At this time, although it is suggested that we try some gabapentin given the patient's low blood pressure and some drowsiness, we will hold on this. We will continue to monitor the patient's symptoms; however, she will be ready for inpatient rehab at anytime. I discussed the case with Case Management, and again, we will work on getting her placed to inpatient rehab. She remains with good strength in the bilateral lower extremities with intact sensation to light touch and I simply believe we are dealing with radiculitis. Please call with any changes in patient's neurologic status. Job ID: [id number]
[2018-12-16] MEDS ORDERED: Gabapentin 100 MG CAP PO SCH (09:00)
--- NOTE | 2018-12-16 13:13 | EKG ---
Test Reason : ROUTINE Blood Pressure : / mmHG Vent. Rate : 057 BPM Atrial Rate : 057 BPM P-R Int : 160 ms QRS Dur : 078 ms QT Int : 448 ms P-R-T Axes : 035 -11 016 degrees QTc Int : 436 ms Sinus bradycardia Low voltage QRS Septal infarct , age undetermined Abnormal ECG When compared with ECG of 12-DEC-2018 10:11, (Unconfirmed) Nonspecific T wave abnormality no longer evident in Anterolateral leads Confirmed by SABAS CARLIN (2) on 12/16/2018 1:13:14 PM Referred By: Confirmed By:SABAS CARLIN
[2018-12-16 15:28] VITALS: BP 113/63; TEMP 98.6
[2018-12-16] MEDS: metFORMIN XR 500 MG TAB PO SCH (16:10)
[2018-12-16 16:58] LABS: Anion Gap 9 mmol/L (10-20); BUN (Urea Nitrogen) 8 mg/dL (9.8-20.1); Calc. Creatinine Clearance 98 mL/min (70-130); Carbon Dioxide 26 mmol/L (23-31); Chloride 103 mmol/L (98-107); Estimated GFR-MDRD 81; Glucose 179 mg/dL (80-115); Magnesium 1.6 mg/dL (1.6-2.6); Potassium 3.8 mmol/L (3.5-5.1); Sodium 134 mmol/L (136-145)
--- NOTE | 2018-12-17 05:12 | PQF ---
[employer] Crystal Reports Win[employer] BEENA Moore RISA MOHIT BARRIOS MD [id number] [facility] A 333 [id number] CLINICAL DOCUMENTATION CLARIFICATION FORM: POST DISCHARGE Addendum to original discharge summary date: ____ Late entry note date: __ DATE: 12/17/2018 ATTN: MOHIT BARRIOS MD Please exercise your independent, professional judgment in responding to the clarification form. Clinical indicators are provided on the bottom of this form for your review Please check appropriate box(s): [ ] Hyponatremia is clinical significance [ ] Hyponatremia is not clinical significance [ ] Other diagnosis [ ] Unable to determine In addition, please specify: Present on Admission (POA): [ ] Yes [ ] No [ ] Unable to determine CLINICAL INDICATORS - SIGNS / SYMPTOMS / LABS -Sodium: 134L- Laboratory, 12/12 -mild weakness in the left iliopsoas-Consulation, pg2Asa PA-C RISK FACTORS - Type 2 diabetes mellitus-Consulation, pg2Asa PA-C - Does have elevated blood glucode at 294-Consulation, pg2Asa PA-C - Left L2-L3 hemilaminotomy, Froaminotomy and diskectomy-OP report, 12/13, Stephon Carrillo MD TREATMENTS: Sodium chloride.IV- MAR, 12/11 (This form is maintained as a part of the permanent medical record) 2014 [employer]. All Rights Reserved Charlie Finney [not provided] [not provided] MTDD
--- NOTE | 2018-12-17 10:56 | DIS ---
DATE OF ADMISSION: 12/11/2018 DATE OF DISCHARGE: 12/16/2018 DISCHARGE DIAGNOSES: 1. Low back pain with left leg paresthesias. 2. Lumbar spinal stenosis. 3. Type 2 diabetes mellitus. 4. Hypertension. 5. Hyperlipidemia. HOSPITAL COURSE: Ms. Nolasco was admitted on 12/11/2018 from the emergency room in regard to low back pain with left leg weakness and left lower extremity paresthesias. The patient subsequently underwent left L2-L3 and left L4 hemilaminotomies, foraminotomies, and diskectomy on the left at L2-L3. The patient's surgery was without complication and required several overnight stays in order for adequate pain control postoperatively. At the time of discharge, she was doing well in regard to bilateral lower extremity strength, although did have continued left leg pain. Postoperatively, she was ambulating well. She was discharged to [facility] for intensive rehab. Appropriate patient education and outpatient followups were provided to the patient. She and her certainly understood to call the office with questions or concerns. Otherwise, she was doing well postoperatively, although she did have continued left paresthesias and pain. Job ID: [id number]
== END 2018-12-16 19:10 | DRG 520 ==
LOC: ERS 12:28 → SURG A 17:13
PROVIDERS: ADMIT Surgery; ATTEND Surgery
PROC: 0SB20ZZ Excision of Lumbar Vertebral Disc, Open Approach (ICD-10-PCS; principal; 2018-12-13)
PROC: 01NB0ZZ Release Lumbar Nerve, Open Approach (ICD-10-PCS; 2018-12-13)
DX: M51.16 Intervertebral disc disorders with radiculopathy, lumbar region (principal); M48.061 Spinal stenosis, lumbar region without neurogenic claudication; E78.5 Hyperlipidemia, unspecified; I10 Essential (primary) hypertension; G89.29 Other chronic pain; M47.26 Other spondylosis with radiculopathy, lumbar region; F41.9 Anxiety disorder, unspecified; E11.65 Type 2 diabetes mellitus with hyperglycemia; F32.9 Major depressive disorder, single episode, unspecified; Z90.49 Acquired absence of other specified parts of digestive tract; Z90.710 Acquired absence of both cervix and uterus
CPT/HCPCS: 36415; 36416; 72158; 76000; 80048; 80053; 82565; 83036; 83735; 84484; 85025; 85610; 85730; 93005; 93010; 99284; A9577; J0690; J1170; J1885; J2001; J2250; J2405; J2704; J3010; J3370; J3490; Q0162; Q0163

== ENCOUNTER 2019-01-14 16:11 | Observation (INO) | payer MEDICARE, BC ==
[2019-01-14 18:23] LABS: #Eosinphils 0.2 thou/uL (0.0-0.7); #Lymphocytes 2.1 thou/uL (1.20-3.40); #Monocytes 0.7 thou/uL (0.11-0.59); #Neutrophils 4.3 thou/uL (1.40-6.50); %Basophils 0.5 % (0.0-1.0); %Eosinophils 2.9 % (0.0-10.0); %Lymphocytes 28.2 % (21.0-51.0); %Monocytes 9.6 % (0.0-10.0); %Neutrophils 58.8 % (42.0-75.0); Hemoglobin 13.4 g/dL (12.0-16.0); Mean Corpuscular HGB CONC 34.7 g/dL (32.0-36.0); Mean Corpuscular Hemoglobin 31.2 pg (27.0-31.0); Mean Corpuscular Volume 89.8 fL (78.0-98.0); Mean Platelet Volume 7.5 fL (7.4-10.4); Platelet Count 157 thou/uL (130-400); Red Blood Cell (RBC) Count 4.29 mill/uL (4.20-5.40); White Blood Cell (WBC) Count 7.4 thou/uL (4.8-10.8)
[2019-01-14 18:39] LABS: ALT (SGPT) 26 U/L (8-55); AST (SGOT) 19 U/L (5-34); Albumin 3.8 g/dL (3.4-4.8); Alkaline Phosphatase 70 U/L (40-150); Anion Gap 12 mmol/L (10-20); BUN (Urea Nitrogen) 13 mg/dL (9.8-20.1); Bilirubin, Total 0.3 mg/dL (0.2-1.2); Calc. Creatinine Clearance 0 mL/min (70-130); Calcium 9.5 mg/dL (7.8-10.44); Carbon Dioxide 25 mmol/L (23-31); Chloride 103 mmol/L (98-107); Estimated GFR-MDRD 66; Globulin 2.7 g/dL (2.4-3.5); Glucose 246 mg/dL (80-115); Potassium 4.4 mmol/L (3.5-5.1); Protein, Total 6.5 g/dL (6.0-8.3); Sodium 136 mmol/L (136-145)
[2019-01-14] MEDS ORDERED: diphenhydrAMINE 25 MG CAP PO PRN (19:10)
[2019-01-14] MEDS ORDERED: traMADol HCl 50 MG TAB PO PRN ×2 (19:10)
[2019-01-14] MEDS ORDERED: Bisacodyl 10 MG SUPP PR PRN (19:10)
[2019-01-14] MEDS ORDERED: Acetaminophen/Codeine 30-300mg Tablet PO PRN ×2 (19:10)
[2019-01-14] MEDS ORDERED: Acetaminophen 325 MG TAB PO PRN (19:10)
[2019-01-14] MEDS ORDERED: Promethazine 25 MG TAB PO PRN (19:10)
[2019-01-14] MEDS ORDERED: Mag-Al 1200 mg/1200 mg/30 ML UDCUP PO PRN (19:10)
[2019-01-14] MEDS ORDERED: Senokot S 8.6-50 MG TAB PO PRN (21:13)
[2019-01-14] MEDS ORDERED: CEFAZOLIN 2 GM in Premix Bag 1 BAG IVPB SCH (22:00)
--- NOTE | 2019-01-15 02:21 | HP ---
HISTORY OF PRESENT ILLNESS: Ms. Nolasco is a 68-year-old female who is known to our neurosurgical team, Dr. Szymanski did a laminectomy/diskectomy in December 13. Surgery went well. However, she shortly after had some wound dehiscence. She was seen in the office yesterday and both Dr. Szymanski and Endy wanted to treat conservatively and referred her over to Wound Care for a wound VAC; however, the patient was told that she would not be able to get into wound care for 2 to 3 weeks and their office told her to come to the ER for a quicker treatment. The patient has had some drainage for about 5 days, more significant yesterday before her visit. Today she states that it is still draining and is a little tender surrounding the incision. The wound has dehisced to the fascia. There is no significant erythema or edema surrounding this incision and I do not see any active drainage; however, the bandage is moist. The patient denies any fever. She has had a little bit of chill here and there, feels a little "run down." Vitals in the ER today, temperature is 98 and 97.9. Her white cells are 7.4. REVIEW OF SYSTEMS: A 10-point review of systems has been completed and is negative other than stated in the above HPI. PAST MEDICAL HISTORY: Diabetes, hyperlipidemia, and hypertension. PAST SURGICAL HISTORY: Cholecystectomy, hysterectomy, colostomy, laminectomy, diskectomy. PSYCHIATRIC HISTORY: Includes anxiety, depression, PTSD. SOCIAL HISTORY: The patient denies alcohol, drug use. No smoking history. Lives at home with family. ALLERGIES: ADHESIVE TAPE, NORCO, TIZANIDINE. CURRENT MEDICATIONS: 1. Enalapril. 2. Citalopram. 3. Atorvastatin. 4. Metformin. 5. Januvia. 6. Bupropion. PHYSICAL EXAMINATION: VITAL SIGNS: Blood pressure 133/64, heart rate 75, respirations 18, temperature 98, pain 4, O2 saturations 96% on room air. CONSTITUTIONAL: The patient is awake, alert, oriented x3. She is normotensive and afebrile. She does not appear in any visible distress and appears nontoxic. HEENT: Head is normocephalic and atraumatic. Pupils are equal, round, and reactive to light. Extraocular movements are intact. Hearing is intact. Moist mucous membranes. RESPIRATIONS: Normal work of breathing on room air. EXTREMITIES: Upper extremities; 5/5 strength in bilateral deltoids, biceps, triceps, nurse companion strength. Lower extremity; 5/5 strength in bilateral hip extension, knee flexion, knee extension, dorsiflexion, plantar flexion, EHL 4-/5 in left hip flexion. NEUROLOGIC: The patient is awake, alert, oriented x3. Normal attention and concentration. Speech is spontaneous and fluent. Cranial nerves are tested and intact. There is an area on anterior thigh of decreased sensation, unchanged since surgery. ASSESSMENT AND PLAN: Ms. Nolasco is a 68-year-old female with wound dehiscence following a lumbar laminectomy and diskectomy on December 13, 2018. She has been followed by Dr. Szymanski, who saw her in the office yesterday. They have had her on oral antibiotics and due to this dehiscence, planned on sending her to Wound Care to get a wound VAC. They do not feel that there is significant infection; however, they are covering for any opportunistic infection with the moisture in the drainage. If the patient has had a reaction with anesthesia, possibly pain medications following her surgery and they would like to limit anesthesia and try conservative measures as much as possible before any risk of taking her back to the OR. So we will admit her, get her comfortably upstairs, consult Wound Care. Start IV antibiotics for any skin infection until she gets comfortable. Wound care came in, hopefully get a wound VAC to help her heal faster. If there are any questions, please contact Neurosurgery Team. Job ID: [id number]
[2019-01-15] MEDS ORDERED: HumaLOG 300 UNITS/3 ML VIAL SC PRN (03:35)
[2019-01-15] MEDS ORDERED: Dextrose 50% Abboject 50 ML SYRINGE SLOW IVP PRN (03:35)
[2019-01-15] MEDS ORDERED: Dextrose 5% in Water 1,000 ML IV PRN (03:35)
--- NOTE | 2019-01-15 03:37 | PDOC.HOSPP ---
- Subjective Encounter Date: 01/15/19 Encounter Time: 02:00 Subjective: no sob or back pain is ambulating in room - Objective Vital Signs & Weight: Vital Signs (12 hours) Temp Pulse Resp BP Pulse Ox 01/15/19 00:13 98.2 F 64 16 162/82 H 94 L 01/14/19 20:20 97.8 F 66 16 145/83 H 95 01/14/19 19:15 97.7 F 77 18 154/70 H 98 Weight Weight 167 lb I&O: 01/13/19 01/14/19 01/15/19 06:59 06:59 06:59 Intake Total 760 Balance 760 Result Diagrams: 01/14/19 18:08 01/14/19 18:08 Hospitalist ROS - Medication Medications: Active Medications Generic Name Dose Route Start Last Admin Trade Name Freq PRN Reason Stop Dose Admin Cefazolin Sodium/Dextrose 2 gm 50 mls @ 100 mls/hr 01/14/19 22:00 01/14/19 20 :30 / Device IVPB 50 mls Q8HR FRANCESCA Administration - Exam General Appearance: NAD, awake alert Eye: PERRL, anicteric sclera ENT: no oropharyngeal lesions, moist mucosa Neck: supple, no JVD Heart: RRR, no murmur Respiratory: no wheezes, no rales Gastrointestinal: soft, non-tender, non-distended, normal bowel sounds Extremities: no clubbing, no edema Neurological: CN's grossly intact, no focal deficits Psychiatric: normal affect, A&O x 3 Hosp A/P (1) Wound dehiscence, surgical Status: Acute Plan: lumbar laminectomy wound (2) Anxiety Code(s): F41.9 - ANXIETY DISORDER, UNSPECIFIED Status: Chronic (3) DM2 (diabetes mellitus, type 2) Status: Chronic 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 will f/u for wound vac per nsx/patient to be applied today. No h/o fall at home. Says the sutures might have come out when she had psychotic reaction post op from anesthesia
[2019-01-15] MEDS: CEFAZOLIN 2 GM in Premix Bag 1 BAG IVPB SCH ×2 (05:37→14:51)
[2019-01-15] MEDS: Alogliptin 25 MG TAB PO SCH ×2 (08:23→08:49)
[2019-01-15] MEDS: Citalopram 20 MG TAB PO SCH ×2 (08:24→08:49)
[2019-01-15] MEDS: Lisinopril 20 MG TAB PO SCH ×2 (08:24→08:49)
[2019-01-15] MEDS: Atorvastatin Calcium 10 MG TAB PO SCH ×2 (08:24→08:49)
[2019-01-15] MEDS ORDERED: Bupropion 150 MG SR TAB PO SCH (09:00)
--- NOTE | 2019-01-15 12:01 | PRG ---
DATE OF SERVICE: 01/15/2019 Ms. Nolasco was readmitted. She has a few weeks out from a routine lumbar diskectomy for rapid decline from a motor and sensory radiculopathy due to a disk extrusion. Due to lumbar diskectomy, her leg pain improved as did her strength. She is moving with more vigor and has intact strength again. Unfortunately, she has a history of psychotic episodes and had one when in inpatient rehab that even required 4-point restraints. The patient and her tell me that her episode consisting of her lifting up furniture and throwing it. Of course, this resulted in dehiscence of her wound, which is now try and heal by secondary intention. When I saw her in clinic on Friday, we cleaned the wound and we packed with iodine based dressing. I recommended we get the patient urgently to Wound Care for wound VAC. There was a delay in this regard. The patient came to the ER yesterday and she has been admitted for placement of a wound VAC. Job ID: [id number]
--- NOTE | 2019-01-15 14:07 | PDOC.EVN ---
Event Note - Event Note Event Note: Chart reviewed. Patient seen. Denies any complaints. Awaiting wound vac, will be discharged soon. Will sign off.
[2019-01-15 14:56] VITALS: BMI 26.2
[2019-01-15 15:38] VITALS: BP 152/82; TEMP 97.4
[2019-01-15] MEDS ORDERED: metFORMIN XR 500 MG TAB PO SCH (21:00)
== END 2019-01-15 17:15 | disposition home health service (06) ==
LOC: ERS 16:11 → SJJU 17:30
PROVIDERS: ADMIT Surgery; ATTEND Surgery
DX: T81.30XA Disruption of wound, unspecified, initial encounter (principal); I10 Essential (primary) hypertension; E11.9 Type 2 diabetes mellitus without complications; E78.5 Hyperlipidemia, unspecified; F43.10 Post-traumatic stress disorder, unspecified; F41.9 Anxiety disorder, unspecified; F32.9 Major depressive disorder, single episode, unspecified; Z79.84 Long term (current) use of oral hypoglycemic drugs; Z79.899 Other long term (current) drug therapy; Z88.5 Allergy status to narcotic agent; Z88.8 Allergy status to other drugs, medicaments and biological substances; Z91.048 Other nonmedicinal substance allergy status
CPT/HCPCS: 80053; 82962; 85025; 96365; 96366; 97139 ×5; 99284; G0378 ×3; 36415; 36416; J0690

== ENCOUNTER 2019-01-25 15:33 | Outpatient (CLI) | payer MEDICARE, BC ==
--- NOTE | 2019-01-25 16:20 | RAD ---
Exam: 3 views thoracic spine HISTORY: Skin graft failure FINDINGS: AP, swimmer's and a lateral view of the thoracic spine demonstrate preservation of vertebra l body height. No fracture. Disc space heights are preserved. No malalignment. There 12 thoracic type vertebra. IMPRESSION: Unremarkable thoracic spine radiograph series.
--- NOTE | 2019-01-25 16:25 | RAD ---
EXAM: XR Lumbar Spine 2 Or 3 View PROVIDED CLINICAL HISTORY: Skin graft failure. History of spondylosis of lumbar spine. COMPARISON: 12/01/2017. FINDINGS: 5 nonrib-bearing lumbar-type vertebral bodies are again seen. There is stable retrolisthesis of L2 on L3 and to a lesser extent L3 on L4 with overall similar degree of retrolisthesis compared to prior exam. The vertebral body heights are within normal limits. Bilateral pars defects are again seen at L 5 without anterolisthesis. Vascular calcifications are again seen in the abdominal aorta. There are lucent centered calcifications seen to the right of the L4-5 intervertebral disc space probably relat ed to phleboliths. Surgical clips overlie the right upper quadrant. Radiopaque catheter overlies midline of the abdomen on the frontal projection. IMPRESSION: 1. Stable degrees of retrolisthesis of L2 on L3 and L3 on L4. 2. Stable spondylosis L5-S1 level. 3. Vertebral body heights are within normal limits.
--- NOTE | 2019-01-25 18:09 | RAD ---
CHEST TWO VIEWS: HISTORY: Skin graft. COMPARISON: Chest radiograph from 05/26/2018. FINDINGS: The lungs are clear. No pneumothorax or effusion. The cardiac silhouette and mediastinal contours a re within normal limits. No acute osseous abnormality. IMPRESSION: No acute intrathoracic abnormality. POS: CET
== END 2019-01-25 15:34 | disposition home or self-care (01) ==
LOC: RAD 15:33
PROVIDERS: ATTEND Nurse Practitioner Family
DX: E78.5 Hyperlipidemia, unspecified (principal); M43.16 Spondylolisthesis, lumbar region; M47.817 Spondylosis without myelopathy or radiculopathy, lumbosacral region
CPT/HCPCS: 36415; 71046; 72070; 72100; 80053; 85027; 85652

== ENCOUNTER 2019-01-29 13:35 | Outpatient (CLI) | payer MEDICARE, BC | END 2019-01-29 13:36 | disposition home or self-care (01) | LOC: ULT 13:35 | DX: E78.5 Hyperlipidemia, unspecified (principal); I08.1 Rheumatic disorders of both mitral and tricuspid valves | CPT/HCPCS: 93306 ==

== ENCOUNTER 2019-08-03 12:50 | Emergency (ER) | payer MEDICARE, BC ==
[2019-08-03 14:07] LABS: #Basophils 0.1 thou/uL (0.0-0.2); #Eosinphils 0.1 thou/uL (0.0-0.7); #Lymphocytes 2.5 thou/uL (1.20-3.40); #Monocytes 0.8 thou/uL (0.11-0.59); #Neutrophils 4.5 thou/uL (1.40-6.50); %Basophils 1.5 % (0.0-1.0); %Lymphocytes 31.3 % (21.0-51.0); %Monocytes 9.4 % (0.0-10.0); %Neutrophils 56.9 % (42.0-75.0); Hemoglobin 14.5 g/dL (12.0-16.0); Mean Corpuscular Hemoglobin 30.5 pg (27.0-31.0); Mean Corpuscular Volume 89.7 fL (78.0-98.0); Mean Platelet Volume 7.4 fL (7.4-10.4); Platelet Count 186 thou/uL (130-400); Red Blood Cell (RBC) Count 4.76 mill/uL (4.20-5.40); White Blood Cell (WBC) Count 7.9 thou/uL (4.8-10.8)
[2019-08-03] MEDS ORDERED: Acetaminophen 500 MG TAB ONE (14:17)
[2019-08-03] MEDS ORDERED: Metoclopramide HCl 10 MG/2 ML VIAL ONE (14:17)
[2019-08-03] MEDS ORDERED: diphenhydrAMINE 25 MG CAP ONE (14:17)
[2019-08-03 14:34] LABS: ALT (SGPT) 19 U/L (8-55); AST (SGOT) 15 U/L (5-34); Alkaline Phosphatase 59 U/L (40-110); Anion Gap 13 mmol/L (10-20); BUN (Urea Nitrogen) 16 mg/dL (9.8-20.1); Bilirubin, Total 0.3 mg/dL (0.2-1.2); Calc. Creatinine Clearance 0 mL/min (70-130); Calcium 9.6 mg/dL (7.8-10.44); Carbon Dioxide 26 mmol/L (23-31); Chloride 103 mmol/L (98-107); Estimated GFR-MDRD 73; Glucose 206 mg/dL (80-115); Potassium 4.3 mmol/L (3.5-5.1); Sodium 138 mmol/L (136-145)
--- NOTE | 2019-08-03 14:40 | RAD ---
Chest one view HISTORY: Chest pain. COMPARISON: 01/25/2019. FINDINGS: Cardiac silhouette is magnified by projection. Shallow inspiration accentuates pulmonary ma rkings. Mediastinum is midline. Right hemidiaphragm remains slightly elevated. No lobar consolidation or evidence of pneumothorax. monitoring tech leads overlie the chest. IMPRESSION : No active cardiopulmonary abnormalities are demonstrated.
--- NOTE | 2019-08-03 14:49 | CT ---
Exam: Head CT without contrast HISTORY: Headache. COMPARISON: 01/13/2012 FINDINGS: Hemorrhage: No intraparenchymal hemorrhage or extra-axial hematoma. Brain parenchyma: Cortical mckay-white matter differentiation is preserved. No mass effect or midline shift. Basilar cisterns are patent. Ventricular system: Ventricles and sulci are patent and symmetric. Calvarium: Intact. Sinuses and mastoid air cells: Adequate aeration. IMPRESSION: No acute intracranial process.
== END 2019-08-03 15:50 | disposition home or self-care (01) ==
LOC: ERS 12:50
DX: R51 Headache (principal); R07.9 Chest pain, unspecified; E11.9 Type 2 diabetes mellitus without complications; E78.5 Hyperlipidemia, unspecified; E78.00 Pure hypercholesterolemia, unspecified; I10 Essential (primary) hypertension; F41.9 Anxiety disorder, unspecified; F32.9 Major depressive disorder, single episode, unspecified; Z79.84 Long term (current) use of oral hypoglycemic drugs; Z79.899 Other long term (current) drug therapy
CPT/HCPCS: 36415; 70450; 71045; 80053; 84484; 85025; 87040; 93005; 96361; 96374; J2765; Q0163